=== PATIENT | male | born 1970 | race Caucasian/White ===

== ENCOUNTER 2017-08-19 19:00 | Emergency (ER) | payer OTHER, BC ==
[~2017-08-19] VITALS: Ht 172.7 cm; Wt 83.9 kg
[~2017-08-19 19:00] MED LIST: PANT20TA58 PO; PROTONICS
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
[2017-08-19] MEDS ORDERED: KETOROLAC 60 MG/2 ML VIAL. IM ONE (19:45)
[2017-08-19] MEDS ORDERED: METHOCARBAMOL 750 MG TABLET PO ONE (19:45)
[2017-08-19] MEDS ORDERED: ACETAMINOPHEN 500 MG TABLET PO ONE (19:45)
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
[2017-08-19] MEDS ORDERED: HYDR-2758 PO (21:23)
[2017-08-19] MEDS ORDERED: NAPR275T59 PO (21:23)
[2017-08-19] MEDS ORDERED: METH-38 PO (21:23)
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
[2017-08-19] MEDS ORDERED: HYDROmorphone PF 2 MG/ML VIAL ONE (21:45)
[2017-08-19 21:55] VITALS: BP 135/87
[2017-08-19] MEDS ORDERED: HYDROmorphone PF 2 MG/ML VIAL IM ONE (22:00)
[2017-08-19] MEDS ORDERED: HYDROmorphone PF 1 MG/ML DISP.SYRIN IM ONE (22:00)
--- NOTE | 2017-08-20 09:55 | RAD ---
HAND LEFT 3V Clinical Indication: trauma, thumb pain Comparison: None. Findings: No acute fracture or malalignment. Mild interphalangeal arthrosis. Bony mineralization is normal for the patient's age. No significant soft tissue abnormality. No radiopaque foreign body. IMPRESSION: No acute fracture or malalignment.
== END 2017-08-19 21:55 | disposition home or self-care (01) ==
LOC: ER 19:00
DX: S02.2XXA Fracture of nasal bones, initial encounter for closed fracture (principal); S00.83XA Contusion of other part of head, initial encounter; S00.03XA Contusion of scalp, initial encounter; S10.93XA Contusion of unspecified part of neck, initial encounter; S40.011A Contusion of right shoulder, initial encounter; S60.222A Contusion of left hand, initial encounter; S63.91XA Sprain of unspecified part of right wrist and hand, initial encounter; M54.9 Dorsalgia, unspecified; K21.9 Gastro-esophageal reflux disease without esophagitis; F17.200 Nicotine dependence, unspecified, uncomplicated; Y00.XXXA Assault by blunt object, initial encounter; Y93.89 Activity, other specified; Y99.0 Civilian activity done for income or pay; Y92.89 Other specified places as the place of occurrence of the external cause
CPT/HCPCS: 70450; 70486; 72125; 72128; 73130; 96372; 99284; J1170; J1885

== ENCOUNTER 2021-08-12 14:15 | Emergency (ER) | payer OTHER, BC ==
[~2021-08-12] VITALS: Ht 172.7 cm; Wt 88.6 kg
[~2021-08-12 14:15] MED LIST changes: +HYDR-2155 PO; +METH-38 PO; +NAPR275T59 PO
[2021-08-12 15:19] VITALS: BP 139/90
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
--- NOTE | 2021-08-12 16:28 | RAD ---
XR ELBOW COMPLETE_LEFT 3+VIEWS, XR BILATERAL HIP (WITH OR WITHOUT PELVIS) LEFT 2 VIEWS, XR KNEE _4 EWS WITH PATELLA_LT Clinical indications: Reason: fall and pain. Left knee: No acute fracture or dislocation or osteolytic process is evident. AP view of the pelvis and two-view study of the left hip: No acute fracture or dislocation or lytic p rocess is seen. Hip joints are symmetric. Left elbow: No joint effusion is seen. No acute fracture or dislocation or lytic process is evident. There is a bone fragment of the distal triceps tendon attachment to the proximal olecranon. The edges are sclerotic and therefore this is not an acute fracture. This could represent an old fracture of a traction spur of the olecranon at the attachment of the Achilles tendon. No soft tissue swelling of the olecranon bursa is seen. IMPRESSION: No acute osseous abnormality is evident. Electronically signed by: Mason Cameron MD (08/12/2021 4:25 PM) [id number]
[2021-08-12] MEDS: HYDROcodone/APAP 5/325MG 1 TAB TABLET PO ONE (16:31)
== END 2021-08-12 16:54 | disposition home or self-care (01) ==
LOC: ER 14:15
DX: S50.312A Abrasion of left elbow, initial encounter (principal); M25.552 Pain in left hip; M25.522 Pain in left elbow; K21.9 Gastro-esophageal reflux disease without esophagitis; I10 Essential (primary) hypertension; F17.200 Nicotine dependence, unspecified, uncomplicated; E78.5 Hyperlipidemia, unspecified; Y08.89XA Assault by other specified means, initial encounter; Y93.89 Activity, other specified; Y92.89 Other specified places as the place of occurrence of the external cause; Y99.8 Other external cause status
CPT/HCPCS: 73080; 73502; 73564; 99284

== ENCOUNTER 2021-11-12 21:09 | Emergency (ER) | payer BC, OTHER ==
[~2021-11-12] VITALS: Ht 172.7 cm; Wt 88.6 kg
--- NOTE | 2021-11-12 21:34 | PHYS DOC ---
Past History Past Medical History: GERD, Hypertension Past Surgical History: Other Additional Past Surgical Histo: HERNIA REPAIR, REPAIRED HYDROCELE Smoking: Less than 1pk/day Alcohol Use: None Drug Use: None Adult General HPI HPI Patient is a 51-year-old male with a past medical history of anxiety, GERD and hypertension who presents to the emergency department with a chief complaint of feelings of racing heart over the past day. States he never had anything like this before. Denies any cardiac history. Denies any family cardiac history. Denies any recent travels, traumas, illnesses, fevers, chest pain, shortness of breath, abdominal pain, nausea, vomiting, dysuria, hematuria, blood in the stool or diarrhea. 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 States his at home does have some cold symptoms like nasal congestion and cough. States he has been vaccinated for COVID but has not been tested in about 4 months. Denies any history of VTE. Alcohol or drug use. States he is a former smoker. Would like a COVID swab. Review of Systems Review of Systems Constitutional: Denies fever or chills [] Eyes: Denies change in visual acuity, redness, or eye pain [] HENT: Denies nasal congestion or sore throat [] Respiratory: Denies cough or shortness of breath [] Cardiovascular: No additional information not addressed in HPI [] GI: Denies abdominal pain, nausea, vomiting, bloody stools or diarrhea [] : Denies dysuria or hematuria [] Musculoskeletal: Denies back pain or joint pain [] Integument: Denies rash or skin lesions [] Neurologic: Denies headache, focal weakness or sensory changes [] Endocrine: Denies polyuria or polydipsia [] All other systems were reviewed and found to be within normal limits, except as documented in this note. Allergies Allergies Allergies Coded Allergies Type Severity Reaction Last Updated Verified No Known Drug Allergies 12/09/13 No Physical Exam Physical Exam Constitutional: Well developed, well nourished, no acute distress, non-toxic appearance. [] HENT: Normocephalic, atraumatic, bilateral external ears normal, oropharynx moist, no oral exudates, nose normal. [] Eyes: PERRLA, EOMI, conjunctiva normal, no discharge. [] Neck: Normal range of motion, no tenderness, supple, no stridor. [] Cardiovascular:Heart rate regular rhythm, no murmur [] Lungs & Thorax: Bilateral breath sounds clear to auscultation [] Abdomen: Bowel sounds normal, soft, no tenderness, no masses, no pulsatile masses. [] Skin: Warm, dry, no erythema, no rash. [] Back: No tenderness, no CVA tenderness. [] Extremities: No tenderness, no cyanosis, no clubbing, ROM intact, no edema. [] Neurologic: Alert and oriented X 3, normal motor function, normal sensory function, no focal deficits noted. [] Psychologic: Affect normal, judgement normal, mood normal. [] EKG EKG [] Radiology/Procedures Radiology/Procedures [] Heart Score C/O Chest Pain: No Risk Factors: Risk Factors: DM, Current or recent (<one month) smoker, HTN, HLP, family history of CAD, obesity. Risk Scores: Risk Factors: DM, Current or recent (<one month) smoker, HTN, HLP, family history of CAD, obesity. Course & Med Decision Making Course & Med Decision Making Patient is a 51-year-old male who presents with concerns for racing heart Vital signs initially notable for hypertension which resolved in the ED. Physical exam noted above. EKG with a rate of 81, QRS of 94, QTc of 398, no STEMI. Troponin normal. Chest x-ray normal. Patient otherwise asymptomatic in the ED. Flu and rapid COVID-negative. Discussed all findings with patient. Gave COVID education and quarantine instructions and work note. Advised to follow-up in the morning with primary care physician. Gave return precautions to the ED. Patient grateful, verbalized understanding and agreed with plan of discharge. [] Dragon Disclaimer Dragon Disclaimer This electronic medical record was generated, in whole or in part, using a voice recognition dictation system. Departure Departure: Impression: Primary Impression: Racing heart beat Disposition: HOME / SELF CARE / HOMELESS Condition: GOOD Referrals: LYNDA NEGRETE MD (PCP) Patient Instructions: Palpitations Additional Instructions: Fever coming into the emergency department tonight and allowing us to take care of you. Please read the attached information carefully to go over things we discussed. Please take all your medications as prescribed. Please continue your aspirin. Please follow-up in the morning with your primary care physician update on your ED visit and set up a follow-up with soon as possible. Please come back to the emergency department with new or concerning symptoms as dis cussed. You have been tested for or diagnosed with COVID-19. It is an infection caused by a new type of coronavirus. COVID-19 will cause cold-like or mild flu symptoms in most. It can cause more severe symptoms like problems breathing in some. There is no treatment for COVID-19. The body will clear the infection over time. Self-care will help to ease discomfort. Steps to Take: Self-Care Rest as needed. Healthy habits may help you feel better. Steps include: Choose healthy foods including fruits and vegetables. Drink water throughout the day. Get plenty of sleep each night. If you smoke, try to quit. It may ease breathing. Avoid alcohol. Keep Others Healthy The virus can spread to others. Droplets are released every time you sneeze or cough. The droplets can get into the mouth, nose, or eyes of people near you and lead to infection. To lower the chances of spreading COVID-19 to others: Stay at home until your doctor has said it is safe to leave. If you tested positive this will mean staying isolated until both of the following are true: At least 7 days have passed since the start of illness. You are free of fever for at least 72 hours without the use of medicine. During this time: - Avoid public areas, events, or transportation. Do not return to work or school until your doctor has said it is safe to do so. - Call ahead if you need to go to a medical center. Let them know you may have COVID-19. It will help them guide you where to go. They may also ask you to wear a facemask when you come to the office. - If you call for emergency medical services, let them know you may have COVID- 19. While at home: - Try to avoid close contact with others. Stay about 6 feet away. - If possible, spend most of your time in a separate room from others. - Use a face mask if you will be in close contact with others such as sharing a room or vehicle. - Have someone wipe down common surfaces in the home. Use household network account manager every day on areas like doorknobs, counters, or sinks. - Cough or sneeze into a tissue. Throw the tissue away right after use. If a tissue is not available, cough or sneeze into your elbow. - Wash your hands often. Wash them after sneezing or coughing. Use soap and water and wash for at least 20 seconds. Alcohol based hand equipment or machinery cleaner can be used if soap and water is not available. - Do not prepare food for others. Avoid sharing personal items like forks, spo ons, or toothbrushes. - Avoid close contact with pets while you are sick. There is no evidence of the virus passing to pets. This is a safety step until more is known about this virus. Isolation can be frustrating. Social interaction can help. Keep in touch with friends and family through phone and tech options. You can still interact with others in your home, just keep a safe distance of about 6 feet. Follow-up: Your doctors office will check in with you to see if there are any changes in your health. You may be asked to keep track of symptoms to share with them. They will also let you know when you are clear to be in public again. Problems to Look Out For: Contact your doctor if your recovery is not going as you expect. Get emergency care if you have problems such as: - Trouble breathing - Nonstop chest pain or pressure - Changes in awareness, confusion, or problems waking - Lips or face have bluish color - Worsening of symptoms If you think you have an emergency, call for emergency medical services right away. As taken from [facility] MD Nov 12, 2021 21:34
[2021-11-12 21:56] LABS: BASO % 0 % (0-3); EOS # 0.4 x10^3/uL (0.0-0.7); EOS % 4 % (0-3); HEMATOCRIT 44.4 % (39.0-53.0); HEMOGLOBIN 14.9 g/dL (13.0-17.5); LYMPH # 2.2 x10^3/uL (1.0-4.8); LYMPH % 23 % (24-48); MEAN CORPUSCULAR HEMOGLOBIN 31 pg (25-35); MEAN CORPUSCULAR HGB CONC 34 g/dL (31-37); MEAN CORPUSCULAR VOLUME 92 fL (79-100); MONO % 10 % (0-9); NEUT % 63 % (31-73); PLATELET COUNT 454 x10^3/uL (140-400); RED BLOOD COUNT 4.83 x10^6/uL (4.30-5.70); RED CELL DISTRIBUTION WIDTH 13.4 % (11.5-14.5); WHITE BLOOD COUNT 9.6 x10^3/uL (4.0-11.0)
[2021-11-12 22:05] LABS: CALCIUM 8.9 mg/dL (8.5-10.1); CREATININE 0.9 mg/dL (0.7-1.3); GFR 88.3; MAGNESIUM 2.4 mg/dL (1.8-2.4); POTASSIUM 3.9 mmol/L (3.5-5.1)
[2021-11-12 22:18] LABS: INFLUENZA A PATIENT NEGATIVE (NEGATIVE); INFLUENZA B PATIENT NEGATIVE (NEGATIVE)
--- NOTE | 2021-11-12 22:43 | RAD ---
EXAMINATION: Chest radiograph. VIEWS: 1 COMPARISON: None. INDICATION:51 years, Male, shortness of breath. FINDINGS: Normal cardiomediastinal silhouette. Bibasilar patchy airspace opacities. No pleural effusion or pneu mothorax. No acute osseous process. IMPRESSION: Bibasilar patchy airspace opacities, differential includes atelectatic changes versus pneumonia. Electronically signed by: Joesph Ge MD (11/12/2021 10:40 PM) [facility]
[2021-11-12 23:20] VITALS: BP 138/68
--- NOTE | 2021-11-13 00:57 | EKG ---
[address] [address] Test Date: 2021-11-12 Test Time: 21:44:30 Pat Name: MIGUEL SAM Department: Room: Gender: M It Consulting Manager: : [id number] Requested By: RUSSELL RAYMOND Order Number: [id number] Reading MD: Cuong Carrasco MD Measurements Intervals [place] Rate: 81 P: 49 FL: 126 QRS: 27 QRSD: 94 T: 41 QT: 342 QTc: 398 Interpretive Statements SINUS RHYTHM Electronically Signed On 11-16-2021 9:36:01 BLENDER HELPER by Cuong Carrasco MD
== END 2021-11-12 23:20 | disposition home or self-care (01) ==
LOC: ER 21:09
DX: R00.0 Tachycardia, unspecified (principal); K21.9 Gastro-esophageal reflux disease without esophagitis; I10 Essential (primary) hypertension; F41.9 Anxiety disorder, unspecified; F17.200 Nicotine dependence, unspecified, uncomplicated; Z20.822 Contact with and (suspected) exposure to COVID-19
CPT/HCPCS: 36415; 71045; 80048; 83735; 84484; 85025; 87428; 93005; 99285

== ENCOUNTER 2021-11-19 10:11 | Emergency (ER) | payer BC ==
[~2021-11-19] VITALS: Ht 172.7 cm; Wt 93.0 kg
--- NOTE | 2021-11-19 11:53 | RAD ---
EXAM: Chest, single view. HISTORY: Shortness of breath. COMPARISON: 11/12/2021. FINDINGS: A frontal view of the chest is obtained. There is no infiltrate, effusion or pneumothorax. There is a stable prominent cardiac silhouette. IMPRESSION: No acute pulmonary finding. Electronically signed by: Emily Gao MD (11/19/2021 11:51 AM) [id number]
[2021-11-19] MEDS ORDERED: IBUPROFEN 600 MG TABLET. PO ONE (12:00)
--- NOTE | 2021-11-19 12:07 | PHYS DOC ---
Past History Past Medical History: GERD, Hypertension Past Surgical History: Other Additional Past Surgical Histo: HERNIA REPAIR, REPAIRED HYDROCELE, cyst removed from spine Smoking: Less than 1pk/day Additional Smoking Information: vape Alcohol Use: Rarely Drug Use: None Adult General Chief Complaint Chief Complaint: COUGH HPI HPI Patient is a 51-year-old male who presents to the emergency department concerning ongoing fevers, chills, weaknesses, shortness of breath and stomach upset since starting doxycycline antibiotic regimen for diagnosed pneumonia on 11/13/2021. 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 Patient reports she has tested negative for times in the past 7 days for the COVID-19 virus and does not wish to be retested today. Patient denies chest pain, chest palpitations, sore throat, nasal congestion, headaches, other physical complaints or physical concerns. Review of Systems Review of Systems 14 body systems of review of systems have been reviewed. See HPI for pertinent positives and negative responses, otherwise all other systems are negative, nonpertinent or noncontributory. Constitutional: Negative except as outlined in HPI above. Skin: Negative except as outlined in HPI above. Eyes: Negative except as outlined in HPI above. HENT: Negative except as outlined in HPI above. Respiratory: Negative except as outlined in HPI above. Cardiovascular: Negative except as outlined in HPI above. GI: Negative except as outlined in HPI above. : Negative except as outlined in HPI above. Musculoskeletal: Negative except as outlined in HPI above. Integument: Negative except as outlined in HPI above. Neurologic: Negative except as outlined in HPI above. Endocrine: Negative except as outlined in HPI above. Lymphatic: Negative except as outlined in HPI above. Psychiatric: Negative except as outlined in HPI above. Current Medications Current Medications Current Medications Medications (Trade) Dose Ordered Sig/Davi Start Time Stop Time Status Last Admin Dose Admin Ibuprofen (Motrin) 600 mg 1X ONCE 11/19/21 12:00 11/19/21 12:01 DC Allergies Allergies Allergies Coded Allergies Type Severity Reaction Last Updated Verified No Known Drug Allergies 12/09/13 No Physical Exam Physical Exam Constitutional: Well developed, well nourished, no acute distress, non-toxic appearance. 51-year-old male in no apparent distress. HENT: Normocephalic, atraumatic. Oropharynx moist, pink, no deep tissue infectious process appreciated, no postnasal drip, no uvular edema or deviation, no laryngeal edema, no drooling, no trismus. No tonsillar edema or cobblestoning, there is no oral exudates appreciated. No lymphadenopathy of the head or neck appreciated. Bilateral TMs within normal limits, intact. Eyes: Conjunctiva normal, no discharge. Neck: Normal range of motion, no stridor. Cardiovascular: No cyanosis appreciated, distal cap refill less than 2 seconds. Heart sounds S1-S2 auscultation, regular rate and rhythm. Lungs & Thorax: Patient is in no respiratory distress, no audible adventitious lung sounds appreciated. Lung sounds clear to auscultation all lung arce, the patient is not tachypneic, no accessory muscle use for respirations, normal work of breathing. Abdomen: Nontender, no abnormalities noted. Bowel sounds positive all 4 quadrants. Skin: Warm, dry, no erythema, no rash. Back: No tenderness, no deformities. Extremities: No tenderness, no cyanosis, no clubbing, ROM intact, no edema. Neurologic: Alert and oriented X 3, normal motor function, normal sensory function, no focal deficits noted. Psychologic: Affect normal, judgement normal, mood normal. Current Patient Data Vital Signs Vital Signs Date Time Temp Pulse Resp B/P (MAP) Pulse Ox O2 Delivery O2 Flow Rate FiO2 11/19/21 11:33 98.4 90 20 132/91 (105) 97 Room Air EKG EKG [] Radiology/Procedures Radiology/Procedures STATUS: REG ER ORD. PHYSICIAN: ZACH GALVAN APRN REASON: Shortness of breath, cough PROCEDURE: CHEST AP ONLY EXAM: Chest, single view. HISTORY: Shortness of breath. COMPARISON: 11/12/2021. FINDINGS: A frontal view of the chest is obtained. There is no infiltrate, effusion or pneumothorax. There is a stable prominent cardiac silhouette. IMPRESSION: No acute pulmonary finding. Electronically signed by: Emily Gao MD (11/19/2021 11:51 AM) [id number] Heart Score C/O Chest Pain: No Risk Factors: Risk Factors: DM, Current or recent (<one month) smoker, HTN, HLP, family history of CAD, obesity. Risk Scores: Risk Factors: DM, Current or recent (<one month) smoker, HTN, HLP, family history of CAD, obesity. Course & Med Decision Making Course & Med Decision Making Pertinent Labs and Imaging studies reviewed. (See chart for details) 51-year-old male, vital signs reviewed, resents emerged from concerning ongoing pneumonia signs and symptoms. Physical examination is unremarkable, will order CBC, CMP, blood cultures x2, chest x-ray. Patient's chest x-ray shows improvement from previous diagnostic chest x-ray for pneumonia from last week. Patient's lab work is unremarkable. Discussed with patient findings, recommended to continue p.o. antibiotic regimen as directed by his primary care physician, will provide work excuse, discussed return to ER precautions and concerns, patient is amenable to and gave verbal understanding of ED discharge planning. Discussed with the patient all findings and diagnostic testing as well as the need to follow-up with their primary care provider for further evaluation and treatment or return to the ED if any new or worsening symptoms. Strict return precautions were also discussed at length, the patient voiced understanding and agreement with the discharge planning. The patient was nontoxic in appearance, in no apparent distress, and hemodynamically stable at the time of disposition. Dragon Disclaimer Dragon Disclaimer This electronic medical record was generated, in whole or in part, using a voice recognition dictation system. Departure Departure: Impression: Primary Impression: Cough Disposition: HOME / SELF CARE / HOMELESS Condition: GOOD Referrals: LYNDA CHAVARRIA MD (PCP) Additional Instructions: You are seen today in the emergency department for ongoing cough and congestion while being treated for your diagnosed pneumonia. As we discussed your chest x- ray today showed improvement from your previous checks x-ray of when you were diagnosed with pneumonia. Please continue to take your antibiotics as prescribed by your primary care provider, as we discussed these antibiotics can sometimes cause the stomach upset you are experiencing. You may increase your fluid intake, try bulking agents such as Metamucil or use MiraLAX if you are experiencing constipation issues. Please continue to treat your symptoms with Tylenol and or Motrin as needed for fevers, chills, body aches and pains. Please follow-up with your primary care physician Dr. Chavarria soon for ongoing symptoms. Your lab work today did not show any concerning findings for infection. Thank you for visiting our Emergency Department. It was a pleasure taking care of you today in the emergency department and we appreciate you trusting us with your care. If any additional problems come up don't hesitate to return to visit us. Please follow up with your primary care provider so they can plan additional care if needed and know about the problem that you had. If symptoms worsen come back to the Emergency Department. Any concerning symptoms that start such as chest pain, shortness of air, weakness or numbness on one side of the body, running high fevers or any other concerning symptoms return to the ER. EMERGENCY DEPARTMENT GENERAL DISCHARGE INSTRUCTIONS Thank you for coming to [facility] (ED) today and trusting us with you care. We trust that you had a positivie experience in our Emergency Department. If you wish to speak to the department management, you may call the director at [phone]. YOUR FOLLOW UP INSTRUCTIONS ARE FOLLOWS: 1. Do you have a private Doctor? If you do not have a private doctor, please ask for a resource list of physicians or clinics that may be able to assist you with follow up care. 2. The Emergency Physician has interpreted your x-rays. The X-Ray specialist will also review them. If there is a change in the findings, you will be notified in 48 hours when at all possible. 3. A lab test or culture has been done, your results will be reviewed and you will be notified if you need a change in treatment. ADDITIONAL INSTRUCTIONS AND INFORMATION: 1. Your care today has been supervised by a physician who is specially trained in emergency care. Many problems require more than one evaluation for a complete diagnosis and treatment. We recommend that you schedule your follow up appointment as recommended to ensure complete treatment of you illness or injury. If you are unable to obtain follow up care and continue to have a problem, or if your condition worsens, we recommend that you return to the ED. 2. We are not able to safely determine your condition over the phone nor are we able to give sound medical advice over the phone. For these safety reasons, if you call for medical advice we will ask you to come to the ED for further evaluation. 3. If you have any questions regarding these discharge instructions please call the ED at [phone]. SAFETY INFORMATION: In the interest of safety, wellness, and injury prevention; we encourage you to wear your sealbelt, if you smoke; quite smoking, and we encourage family to use a protective helmet for bicycling and other sporting events that present an increased risk for head injury. IF YOUR SYMPTOMS WORSEN OR NEW SYMPTOMS DEVELOP, OR YOU HAVE CONCERNS ABOUT YOUR CONDITION; OR IF YOUR CONDITION WORSENS WHILE YOU ARE WAITING FOR YOUR FOLLOW UP APPOINTMENT; EITHER CONTACT YOUR PRIMARY CARE DOCTOR, THE PHYSICIAN WHOSE NAME AND NUMBER YOU WERE GIVEN, OR RETURN TO THE ED IMMEDIATELY. ZACH GALVAN APRN Nov 19, 2021 12:07
[2021-11-19 12:37] LABS: BASO # 0.1 x10^3/uL (0.0-0.2); BASO % 1 % (0-3); EOS # 0.2 x10^3/uL (0.0-0.7); EOS % 3 % (0-3); HEMATOCRIT 43.4 % (39.0-53.0); HEMOGLOBIN 14.5 g/dL (13.0-17.5); LYMPH # 1.3 x10^3/uL (1.0-4.8); LYMPH % 21 % (24-48); MEAN CORPUSCULAR HEMOGLOBIN 30 pg (25-35); MEAN CORPUSCULAR HGB CONC 33 g/dL (31-37); MEAN CORPUSCULAR VOLUME 90 fL (79-100); MONO # 1.3 x10^3/uL (0.0-1.1); MONO % 22 % (0-9); NEUT # 3.1 x10^3uL (1.8-7.7); NEUT % 52 % (31-73); PLATELET COUNT 377 x10^3/uL (140-400); RED CELL DISTRIBUTION WIDTH 13.3 % (11.5-14.5); WHITE BLOOD COUNT 5.9 x10^3/uL (4.0-11.0)
[2021-11-19 12:43] LABS: CALCIUM 8.3 mg/dL (8.5-10.1); CREATININE 0.8 mg/dL (0.7-1.3); GFR 101.1; POTASSIUM 3.4 mmol/L (3.5-5.1)
[2021-11-19 12:49] LABS: ALBUMIN 3.4 g/dL (3.4-5.0); ALBUMIN/GLOBULIN RATIO 0.9 (1.0-1.7); TOTAL BILIRUBIN 0.3 mg/dL (0.2-1.0); TOTAL PROTEIN 7.1 g/dL (6.4-8.2)
[2021-11-19 13:07] LABS: BACTERIA,URINE 0 /HPF (0-FEW); BILIRUBIN,URINE NEG (NEG); CLARITY,URINE CLEAR; COLOR,URINE YELLOW; GLUCOSE,URINE NEG (NEG); NITRITE,URINE NEG (NEG); RBC,URINE RARE /HPF (0-2); UROBILINOGEN,URINE 0.2 mg/dL (0.2 mg/dL); WBC,URINE OCC /HPF (0-4)
[2021-11-19 13:59] VITALS: BP 151/90
== END 2021-11-19 13:59 | disposition home or self-care (01) ==
LOC: ER 10:11
DX: R05.9 Cough, unspecified (principal); R50.9 Fever, unspecified; R06.02 Shortness of breath; K30 Functional dyspepsia; K21.9 Gastro-esophageal reflux disease without esophagitis; I10 Essential (primary) hypertension; F17.200 Nicotine dependence, unspecified, uncomplicated
CPT/HCPCS: 36415; 71045; 80053; 81001; 83690; 85025; 87040; 99284

== ENCOUNTER 2022-03-01 20:00 | Emergency (ER) | payer BC ==
[~2022-03-01] VITALS: Ht 170.2 cm; Wt 95.4 kg
--- NOTE | 2022-03-01 20:27 | PHYS DOC ---
Past History Past Medical History: GERD, Hypertension (GUY MENDES APRN) Past Surgical History: Other Additional Past Surgical Histo: HERNIA REPAIR, REPAIRED HYDROCELE, cyst removed from spine (GUY MENDES APRN) Smoking: Less than 1pk/day Alcohol Use: Rarely Drug Use: None (GUY MENDES APRN) General Adult EDM: Chief Complaint: DIARRHEA HPI: HPI: Patient is a 51-year-old male who presents to the emergency department for left upper quadrant pain with diarrhea x24 hours. Patient rates his abdominal pain 1 out of 10. No treatment prior to arrival. Patient denies cough, nausea, vomiting, blood in his stools, urinary symptoms, fevers. Patient's has C. difficile. (GUY MENDES APRN) Review of Systems: Review of Systems: Constitutional: See HPI Respiratory: See HPI GI: See HPI : See HPI (GUY MENDES APRN) Allergies: Allergies: Allergies Coded Allergies Type Severity Reaction Last Updated Verified No Known Drug Allergies 12/09/13 No (GUY MENDES APRN) Physical Exam: PE: Constitutional: Well developed, well nourished, no acute distress, non-toxic appearance. [] HENT: Normocephalic, atraumatic, bilateral external ears normal, oropharynx moist, no oral exudates, nose normal. [] Eyes: PERRL, EOMI, conjunctiva normal, no discharge. [] Neck: Normal range of motion, no tenderness, supple, no stridor. [] Cardiovascular:Heart rate regular rhythm, no murmur [] Lungs & Thorax: Bilateral breath sounds clear to auscultation [] Abdomen: Bowel sounds normal, soft, left upper quadrant tenderness with palpation, no abdominal guarding or rigidity, no masses, no pulsatile masses. [] Skin: Warm, dry, no erythema, no rash. [] Back: No tenderness, no CVA tenderness. [] Extremities: No tenderness, no cyanosis, no clubbing, ROM intact, no edema. [] Neurologic: Alert and oriented X 3, normal motor function, normal sensory function, no focal deficits noted. [] Psychologic: Affect normal, judgement normal, mood normal. [] (GUY MENDES APRN) Current Patient Data: Labs: Laboratory Tests Test 03/01/22 20:35 White Blood Count 12.9 x10^3/uL Red Blood Count 4.71 x10^6/uL Hemoglobin 14.4 g/dL Hematocrit 43.6 % Mean Corpuscular Volume 93 fL Mean Corpuscular Hemoglobin 31 pg Mean Corpuscular Hemoglobin Concent 33 g/dL Red Cell Distribution Width 13.8 % Platelet Count 393 x10^3/uL Neutrophils (%) (Auto) 79 % Lymphocytes (%) (Auto) 11 % Monocytes (%) (Auto) 8 % Eosinophils (%) (Auto) 1 % Basophils (%) (Auto) 1 % Neutrophils # (Auto) 10.2 x10^3uL Lymphocytes # (Auto) 1.4 x10^3/uL Monocytes # (Auto) 1.0 x10^3/uL Eosinophils # (Auto) 0.2 x10^3/uL Basophils # (Auto) 0.1 x10^3/uL Urine Collection Type Clean catch Urine Color Yellow Urine Clarity Clear Urine pH 6.0 Urine Specific [place] >=1.030 Urine Protein Neg Urine Glucose (UA) Neg mg/dL Urine Ketones (Stick) Neg mg/dL Urine Blood Trace Urine Nitrite Neg Urine Bilirubin Neg Urine Urobilinogen Dipstick 0.2 mg/dL Urine Leukocyte Esterase Neg Urine RBC Occ /HPF Urine WBC 0 /HPF Urine Squamous Epithelial Cells Occ /LPF Urine Bacteria 0 /HPF Sodium Level 138 mmol/L Potassium Level 3.9 mmol/L Chloride Level 102 mmol/L Carbon Dioxide Level 28 mmol/L Anion Gap 8 Blood Urea Nitrogen 18 mg/dL Creatinine 0.9 mg/dL Estimated GFR (Cockcroft-Gault) 88.3 BUN/Creatinine Ratio 20 Glucose Level 124 mg/dL Calcium Level 9.4 mg/dL Total Bilirubin 0.6 mg/dL Aspartate Amino Transf (AST/SGOT) 25 U/L Alanine Aminotransferase (ALT/SGPT) 52 U/L Alkaline Phosphatase 86 U/L Total Protein 7.1 g/dL Albumin 3.8 g/dL Albumin/Globulin Ratio 1.2 Lipase 77 U/L Current Medications Medications (Trade) Dose Ordered Sig/Davi Route PRN Reason Start Time Stop Time Status Last Admin Dose Admin Sodium Chloride 1,000 ml @ 1,000 mls/hr Q1H IV 03/01/22 20:30 03/01/22 21:29 DC 03/01/22 20:51 Ondansetron HCl (Zofran) 4 mg 1X ONCE IVP 03/01/22 20:30 03/01/22 20:31 DC 03/01/22 20:52 Dicyclomine HCl (Bentyl) 10 mg 1X ONCE IM 03/01/22 20:30 03/01/22 20:31 DC 03/01/22 20:53 Loperamide HCl (Imodium) 2 mg 1X ONCE PO 03/01/22 20:30 03/01/22 20:31 DC 03/01/22 20:50 Vital Signs: Vital Signs Date Time Temp Pulse Resp B/P (MAP) Pulse Ox O2 Delivery O2 Flow Rate FiO2 03/01/22 20:10 99.4 108 20 148/101 (117) 95 Room Air (GUY MENDES APRN) EKG: EKG: [] (GUY MENDES APRN) Radiology/Procedures: Radiology/Procedures: []PROCEDURE: CT ABDOMEN PELVIS WO CONTRAST EXAM: CT Abdomen and Pelvis without IV contrast CLINICAL HISTORY: luq pain, non contrast due to national contrast shortage COMPARISON: none TECHNIQUE: Helical CT of the abdomen and pelvis without intravenous contrast. Axial, coronal and sagittal reformatted images were generated. PQRS compliance statement - One or more of the following individualized dose reduction techniques were utilized for this study: 1. Automated exposure control 2. Adjustment of the mA and/or kV according to patient size 3. Use of iterative reconstruction technique FINDINGS: Lack of intravenous contrast limits evaluation of solid organs, vasculature, and lymph nodes. Lower chest: Linear opacities in the lung bases likely scarring/atelectasis. Abdomen and Pelvis: No focal liver lesion. Gallbladder is normal. No biliary ductal dilatation. Pancreas, spleen, adrenal glands are unremarkable. No focal renal lesion. No hydronephrosis. No hydroureter. Diffuse bladder wall thickening may be seen with cystitis. Appendix is normal. Moderate colonic stool content is seen. Gastric wall thickening. No small or large bowel dilatation. No bowel obstruction. Featureless appearance of the sigmoid colon. No abdominal or pelvic ascites. No abdominal or pelvic lymphadenopathy. Small fat-containing left inguinal hernia. Bones: Hip joint degenerative changes. No aggressive osseous lesion. IMPRESSION: 1. Moderate colonic stool content is seen. 2. Gastric wall thickening, may be seen with gastritis. 3. Featureless appearance of the sigmoid colon likely from inflammatory bowel disease. 4. Diffuse bladder wall thickening may be seen with cystitis Electronically signed by: Abran Fabian MD (03/01/2022 9:40 PM) [facility] DICTATED AND SIGNED BY: ABRAN FABIAN MD DATE: 03/01/222127 CC: LYNDA NEGRETE MD; GUY MENDES APRN ~ (GUY MENDES APRN) Heart Score: C/O Chest Pain: N/A Risk Factors: Risk Factors: DM, Current or recent (<one month) smoker, HTN, HLP, family history of CAD, obesity. Risk Scores: Score 0 - 3: 2.5% MACE over next 6 weeks - Discharge Home Score 4 - 6: 20.3% MACE over next 6 weeks - Admit for Clinical Observation Score 7 - 10: 72.7% MACE over next 6 weeks - Early Invasive Strategies (GUY MENDES APRN) Course & Med Decision Making: Course & Med Decision Making Pertinent Labs and Imaging studies reviewed. (See chart for details) [] Patient presents to the emergency department for left upper quadrant pain with diarrhea. Patient's is positive for C. difficile. Work-up in the ER consisted of blood work including lipase, urinalysis and CT imaging of abdomen and pelvis. Without contrast was ordered due to national shortage of contrast. Patient treated with IV fluids, nausea medication, Bentyl for cramping and Imodium. Patient reports improvement in his pain following treatment in the emergency department. Patient was noted to have mild leukocytosis with a white blood cell count of 12.9. CMP and lipase were unremarkable. Urinalysis was negative for any acute findings. CT scan of abdomen and pelvis showed moderate colonic stool, findings consistent with gastritis and a featureless sigmoid colon. Patient was unable to provide a stool sample for C. difficile testing. Due to patient's positive exposure to C. difficile and his symptoms as well as his leukocytosis, he will be treated with vancomycin, discussed with supervising. Patient advised to increase his fluids. He is advised to take Imodium for diarrhea. He was offered nausea medication which he declined. Patient vital signs are stable and his tachycardia has resolved. I discussed with patient all findings and diagnostic testing as well as the need to follow-up with PCP for further evaluation and treatment or return to the ER if any new or worsening symptoms. Strict return precautions were also discussed at length. Patient voiced understanding and agreement with the plan. Patient is hemodynamically stable at the time of disposition. (GUY MENDES APRN) Dragon Disclaimer: Dragon Disclaimer: This electronic medical record was generated, in whole or in part, using a voice recognition dictation system. (GUY MENDES APRN) Attending Co-Sign The patient was seen and interviewed as well as examined at the bedside. The chart was reviewed. The case was discussed. Agree with the plan of care. (SINAN LARA DO) Departure Departure: Impression: Primary Impression: Diarrhea Qualified Codes: R19.7 - Diarrhea, unspecified Disposition: HOME / SELF CARE / HOMELESS Condition: GOOD Referrals: LYNDA NEGRETE MD (PCP) Patient Instructions: Diet for Diarrhea, Adult Additional Instructions: You are seen in the emergency department today for abdominal pain and diarrhea. You are going to treat you with an antibiotic that we will treat C. difficile. Please start and finish the antibiotic completely. Increase your fluids. You take Imodium [id number] for diarrhea. Follow-up with your primary care provider tomorrow regarding your ER visit. Return to the emergency department if you develop worsening of your abdominal pain, intractable nausea or vomiting, high fevers refractory to treatment, weakness, blood in your stools or vomit. Scripts Vancomycin Hcl (VANCOMYCIN HCL) 125 Mg Capsule 1 CAP PO QID for DIARRHEA for 10 Days, #40 CAP 0 Refills Prov: GUY MENDES APRN 03/01/22 GUY MENDES APRN March 01, 2022 20:27 SINAN LARA DO March 03, 2022 06:41
[2022-03-01] MEDS ORDERED: IV NORMAL SALINE 1,000ML 1,000 ML IV SCH (20:30)
[2022-03-01] MEDS ORDERED: LOPERAMIDE 2 MG CAPSULE PO ONE (20:30)
[2022-03-01] MEDS ORDERED: ONDANSETRON PF 4 MG/2 ML VIAL. IVP ONE (20:30)
[2022-03-01] MEDS ORDERED: DICYCLOMINE 20 MG/2 ML VIAL. IM ONE (20:30)
[2022-03-01 20:54] LABS: BASO # 0.1 x10^3/uL (0.0-0.2); BASO % 1 % (0-3); EOS # 0.2 x10^3/uL (0.0-0.7); EOS % 1 % (0-3); HEMATOCRIT 43.6 % (39.0-53.0); HEMOGLOBIN 14.4 g/dL (13.0-17.5); LYMPH # 1.4 x10^3/uL (1.0-4.8); LYMPH % 11 % (24-48); MEAN CORPUSCULAR HEMOGLOBIN 31 pg (25-35); MEAN CORPUSCULAR HGB CONC 33 g/dL (31-37); MEAN CORPUSCULAR VOLUME 93 fL (79-100); MONO % 8 % (0-9); NEUT # 10.2 x10^3uL (1.8-7.7); NEUT % 79 % (31-73); PLATELET COUNT 393 x10^3/uL (140-400); RED BLOOD COUNT 4.71 x10^6/uL (4.30-5.70); RED CELL DISTRIBUTION WIDTH 13.8 % (11.5-14.5); WHITE BLOOD COUNT 12.9 x10^3/uL (4.0-11.0)
[2022-03-01 21:07] LABS: CALCIUM 9.4 mg/dL (8.5-10.1); CREATININE 0.9 mg/dL (0.7-1.3); GFR 88.3; POTASSIUM 3.9 mmol/L (3.5-5.1)
[2022-03-01 21:08] LABS: CLARITY,URINE CLEAR; COLOR,URINE YELLOW
[2022-03-01 21:09] LABS: BACTERIA,URINE 0 /HPF (0-FEW); GLUCOSE,URINE NEG (NEG); NITRITE,URINE NEG (NEG); RBC,URINE OCC /HPF (0-2); SQUAMOUS EPITHELIAL CELL,UR OCC /LPF; UROBILINOGEN,URINE 0.2 mg/dL (0.2 mg/dL); WBC,URINE 0 /HPF (0-4)
[2022-03-01 21:14] LABS: ALBUMIN 3.8 g/dL (3.4-5.0); ALBUMIN/GLOBULIN RATIO 1.2 (1.0-1.7); TOTAL BILIRUBIN 0.6 mg/dL (0.2-1.0); TOTAL PROTEIN 7.1 g/dL (6.4-8.2)
--- NOTE | 2022-03-01 21:43 | RAD ---
EXAM: CT Abdomen and Pelvis without IV contrast CLINICAL HISTORY: luq pain, non contrast due to national contrast shortage COMPARISON: none TECHNIQUE: Helical CT of the abdomen and pelvis without intravenous contrast. Axial, coronal and sagi ttal reformatted images were generated. PQRS compliance statement - One or more of the following individualized dose reduction techniques wer e utilized for this study: 1. Automated exposure control 2. Adjustment of the mA and/or kV according to patient size 3. Use of iterative reconstruction technique FINDINGS: Lack of intravenous contrast limits evaluation of solid organs, vasculature, and lymph nodes. Lower chest: Linear opacities in the lung bases likely scarring/atelectasis. Abdomen and Pelvis: No focal liver lesion. Gallbladder is normal. No biliary ductal dilatation. Pancreas, spleen, adrenal glands are unremarkable. No focal renal lesion. No hydronephrosis. No hydroureter. Diffuse bladder wall thickening may be seen with cystitis. Appendix is normal. Moderate colonic stool content is seen. Gastric wall thickening. No small or larg e bowel dilatation. No bowel obstruction. Featureless appearance of the sigmoid colon. No abdominal or pelvic ascites. No abdominal or pelvic lymphadenopathy. Small fat-containing left ing uinal hernia. Bones: Hip joint degenerative changes. No aggressive osseous lesion. IMPRESSION: 1. Moderate colonic stool content is seen. 2. Gastric wall thickening, may be seen with gastritis. 3. Featureless appearance of the sigmoid colon likely from inflammatory bowel disease. 4. Diffuse bladder wall thickening may be seen with cystitis Electronically signed by: Abran Del Rio MD (03/01/2022 9:40 PM) [facility]
[2022-03-01 21:57] VITALS: BP 130/82
[2022-03-01] MEDS ORDERED: VANC125C3 PO (21:58)
== END 2022-03-01 22:04 | disposition home or self-care (01) ==
LOC: ER 20:00
DX: R19.7 Diarrhea, unspecified (principal); R10.12 Left upper quadrant pain; K21.9 Gastro-esophageal reflux disease without esophagitis; I10 Essential (primary) hypertension; F17.200 Nicotine dependence, unspecified, uncomplicated
CPT/HCPCS: 36415; 74176; 80053; 81001; 83690; 85025; 96361; 96372; 96374; 99284; J0500; J2405; J7030